=== PATIENT | male | born 1955 | race Caucasian/White ===

== ENCOUNTER 2016-11-06 17:37 | Emergency (ER) | payer MEDICARE, MEDICAID ==
[~2016-11-06] VITALS: Ht 185.4 cm; Wt 147.4 kg
[~2016-11-06 17:37] MED LIST: 'XANAX0.5 MG PO; AMOXICILLIN500 MG PO; ANAPROX DS550 MG PO; ASPIRIN LOW DOS81 M1 PO; ASPIRIN81 M2; AUGMENTIN 875-875 MG PO; AZELASTINE HYDRO6 M1 OP; BACTRIM DS 8001 TA1 PO; CIPROFLOXACIN500 MG PO; CITRACAL + D E1 EACH PO; CLARITIN10 MG PO; CLINDAMYCIN HC300 MG PO; FLAGYL500 MG PO; INDERAL LA120 M1 PO; INDERAL LA60 MG PO; LASIX20 MG; LASIX40 MG PO; LISINOPRIL/HCTZ1 TA2 PO; LISINOPRIL20 MG PO; LOMOTIL 0.025 M1 TA1 PO; MIRAPEX0.5 MG PO; MOTRIN800 MG PO; NAPROSYN500 MG PO; OMEPRAZOLE MAGN20 MG; PARAFON FORTE500 MG PO; PHENERGAN W/DM120 ML PO; POTASSIUM CHLO20 ME3 PO; PRAVACHOL80 MG PO; PREDNICOT10 MG PO; PROAIR HFA0.09 MG/AC INH; PROZAC40 MG PO; SERTRALINE HYDR50 MG PO; TRAMADOL HCL50 MG PO; ULTRAM50 MG PO; VIBRAMYCIN100 MG PO; VICODIN 5/500 505 MG PO; VICODIN 500 MG-1 TAB PO; VICODIN ES 7501 TA1; VICODIN ES 7501 TAB; XANAX0.5 MG; ZITHROMAX Z PA250 MG PO; ZOFRAN ODT4 MG SL; ZOFRAN4 MG PO; [UNRECOGNIZED DRUG - OTHER] NS
[2016-11-06 18:05] VITALS: BP 154/65
[2016-11-06 19:21] LABS: BASO # 0.1 10*3/uL (0.0-0.1); BASO % 0.9 % (0.0-1.0); EOS # 0.2 10*3/uL (0.0-0.4); EOS % 3.6 % (1.0-4.0); HEMATOCRIT 40.8 % (42.0-52.0); HEMOGLOBIN 13.2 g/dl (14.0-18.0); LYMPH # 1.4 10*3/uL (1.3-4.4); LYMPH % 24.9 % (27.0-41.0); MEAN CELL VOLUME 93.2 fl (80.0-94.0); MEAN CORPUSCULAR HGB 30.1 pg (27.0-31.0); MEAN CORPUSCULAR HGB CONC 32.4 g/dl (33.0-37.0); MEAN PLATELET VOLUME 10.2 fl (9.6-12.3); MONO # 0.3 10*3/uL (0.1-1.0); MONO % 5.4 % (3.0-9.0); NEUT # 3.8 10*3/uL (2.3-7.9); NEUT % 64.9 % (47.0-73.0); PLATELET COUNT AUTOMATED 139 10*3/uL (130-400); RED BLOOD COUNT 4.38 10*6/uL (4.50-5.90); RED CELL DISTRI WIDTH 13.6 % (0-14.5); WHITE BLOOD COUNT 5.8 10*3/uL (4.8-10.8)
[2016-11-06 19:25] LABS: BILIRUBIN NEGATIVE (NEGATIVE); BLOOD NEGATIVE (NEGATIVE); CLARITY CLEAR (CLEAR); COLOR YELLOW (YELLOW); GLUCOSE NEGATIVE (NEGATIVE); KETONE TRACE (NEGATIVE); LEUKO ESTERASE NEGATIVE (NEGATIVE); NITRITE NEGATIVE (NEGATIVE); PH 5.5 (5.0-9.0); PROTEIN NEGATIVE (NEGATIVE); SPECIFIC GRAVITY >= 1.030 (1.005-1.030)
[2016-11-06 19:34] LABS: WBC 0-2 wbc/hpf (0-5)
[2016-11-06 19:35] LABS: BACTERIA TRACE; URINE REFLEX COMMENT NO (NO)
[2016-11-06 19:40] LABS: ALBUMIN 3.8 gm/dl (3.1-4.5); ALKALINE PHOSPHATASE 49 U/L (45-117); BILIRUBIN, TOTAL 0.4 mg/dl (0.2-1.0); BUN 22 mg/dl (7-24); CARBON DIOXIDE 28 mmol/L (21-32); CHLORIDE 111 mmol/L (98-107); EST GLOM FILT AFRICAN AMERICAN > 60 ml/min; GLUCOSE 94 mg/dL (65-99); POTASSIUM 4.3 mmol/L (3.5-5.1); SGOT/AST 17 IU/L (3-35); SGPT/ALT 21 U/L (12-78); SODIUM 146 mmol/L (136-145); TOTAL PROTEIN 6.7 gm/dL (6.4-8.2)
[2016-11-06] MEDS ORDERED: HYDROCODONE BIT1 T11 PO (20:13)
== END 2016-11-06 18:21 | disposition home or self-care (01) ==
LOC: ED 17:37
PROVIDERS: Registered Nurse
DX: R10.31 Right lower quadrant pain (principal); F17.200 Nicotine dependence, unspecified, uncomplicated; Z87.442 Personal history of urinary calculi

== ENCOUNTER 2017-09-25 18:10 | Inpatient (IN) | payer MEDICARE, MEDICAID ==
[~2017-09-25] VITALS: Ht 185.4 cm; Wt 158.0 kg
--- NOTE | ~2017-09-25 | ST ---
[place], [place] EXERCISE STRESS TEST REPORT NAME: JOO BLACKWELL [facility] #: [id number] UNIT #: [id number] ROOM: 416 DOCTOR: ZEE SCOTT MD BIRTHDATE: [birth year] DOS: 09/26/2017 CARDIAC STRESS TEST The patient is a 61-year-old gentleman with complaints of chest pains, with negative cardiac enzymes, troponin I levels, admitted to the hospital for rule out AR. The patient has been asymptomatic since admission. The patient was tested with Lexiscan cardiac stress test. Baseline EKG showed sinus rhythm at the heart rate of 64 beats per minute, normal cardiac axis. There were Q-waves in inferior leads. No significant ST-T abnormality. During the Lexiscan injection and stress and recovery phase, the patient did not develop any significant EKG abnormality compatible with myocardial ischemia. No complaints of any angina-like symptoms. Heart rate ranged between 64 to 96 beats per minute and the blood pressure ranged between 132 systolic over 69 diastolic, 240 systolic over 66 diastolic. Cardiolite was injected 40 seconds after Lexiscan injection of 0.4 mg IV. Normal EKG part of the Lexiscan Cardiolite stress test. No EKG abnormality. No angina symptoms. Cardiolite results to be reported by Dr. Kleber Leahy later today. ZEE SCOTT MD CM:STRESS:EXERCISE STRESS TEST REPORT [id number] ZEE SCOTT MD
--- NOTE | ~2017-09-25 | WRIGHTHP ---
[place], [place] PATIENT HISTORY AND PHYSICAL EXAM NAME: JOO BLACKWELL [facility] #: [id number] UNIT #: [id number] ROOM: 416 DOCTOR: ZEE SCOTT MD BIRTHDATE: [birth year] DOS: 09/26/2017 The patient is a 61-year-old gentleman with a past medical history of: 1. Morbid obesity. 2. Vitamin D deficiency. 3. Major depression, recurrent, mild. 4. History of pollen allergies. 5. Benign essential hypertension. 6. History of generalized anxiety disorder. 7. History of centrilobular emphysema. The patient presented to the Emergency Department with complaints of chest tightness and some shortness of breath, and the patient appeared to be high risk for coronary artery disease considering his morbid obesity, hypertension history. He was admitted to a monitored bed. After admission, the patient remained free of chest pains and he was taken for a cardiac stress test this morning, which only showed some possible apical reversible ischemia which was small area and also possible artifact. Case was discussed with Dr. Kleber Leahy, the hourly sales staff, who has recommended that the patient can be discharged to home after being started on Imdur and a heart catheterization is not recommended at this time. After adjusting his medications and a consult with cardiology and after clearance from them, the patient is being discharged to home to follow up with the office within few days. The patient is asymptomatic before discharge. REVIEW OF SYSTEMS: LUNGS: No increasing shortness of breath or wheezing. GASTROINTESTINAL: No nausea, vomiting, diarrhea, constipation. CARDIOVASCULAR: Complains of chest pain prior to admission. FAMILY HISTORY: Noncontributory. HOME MEDICATIONS: Lisinopril, hydrochlorothiazide, Xanax, albuterol, propranolol, Zoloft, hydrocodone, cetirizine, cholecalciferol, Breo Ellipta inhaler. ALLERGIES: No known drug allergies. PHYSICAL EXAMINATION: GENERAL: Alert and oriented x3. No visible distress. Morbidly obese. VITAL SIGNS: Blood pressure 137/52, heart rate 76 beats per minute, breathing 20 times per minute, temperature 98 degrees Fahrenheit. HEENT AND NECK: Extraocular movements are intact. Sclerae are anicteric. Oral mucosa is moist and clean. No obvious facial weakness. Neck is supple without any lymphadenopathy. No thyromegaly. No JVD. No carotid arterial bruits. LUNGS: Clear to auscultation. No wheezing. No rhonchi. CARDIOVASCULAR SYSTEM: Heart rate is regular in rate and rhythm. S1 and S2 normally audible. No significant murmur or any other abnormal cardiac sounds. ABDOMEN: Soft, nontender. No obvious organomegaly. Bowel sounds are present. No obvious herniation. [place], [place] PATIENT HISTORY AND PHYSICAL EXAM [id number] UN[facility] #: [id number] ROOM: [facility] DOCTOR: ZEE SCOTT MD BIRTHDATE: [birth year] EXTREMITIES: Without significant cyanosis or edema. Warm to touch. CENTRAL NERVOUS SYSTEM: Alert and oriented x 3. Cranial nerves II-XII are intact. Speech is normal. The patient is able to move all extremities. Normal muscle strength. Deep tendon reflexes are equal on both sides. Plantars were downgoing. LABORATORY DATA: Three sets of cardiac enzymes and troponin I levels were all negative. Cardiac stress test was also as mentioned above. CT of the head without any acute abnormality. CT of the neck without any acute abnormality. Chest x-ray without any abnormality. Normal serum electrolytes. IMPRESSION: 1. The patient presenting with chest pains and some shortness of breath and very high risk for a coronary artery disease. The patient admitted and ruled out for acute myocardial infarction ____ troponin I levels which was normal. The patient was taken for a cardiac stress test this morning which showed some possible apical reversible ischemia versus an artifact. Dr. Kleber Leahy, the hourly sales staff, evaluated the patient and also read the stress test images and has recommended some medication changes in addition of Imdur to patient's medications and that the patient can be safely discharged to home after clearance from hourly sales staff and follow up with them as an outpatient. 2. Morbid obesity. The patient works with dietary. 3. Generalized anxiety disorder, treated with Zoloft and p.r.n. Xanax. 4. Centrilobular emphysema, treated with bronchodilators. 5. Chronic lower back pain and lumbar spondylosis, treated with hydrocodone. 6. Vitamin D deficiency, treated with supplements. 7. Benign essential hypertension, treated and controlled. The patient treated with lisinopril and propranolol. 8. The patient will follow up with me at the office next week which is in the few days. ZEE SCOTT MD CM:HISPHYS:PATIENT HISTORY AND PHYSICAL EXAMINATION [id number] ZEE SCOTT MD 09/26/17 222 interface
--- NOTE | ~2017-09-25 | CON ---
[place], [place] RE[facility]ATION [id number] #: [id number] ROOM: 416 DOCTOR: MILES CADETKATIEDORIS BIRTHDATE: [birth year] DOS: 09/26/2017 REQUESTING PHYSICIAN: Dr. Irvin Sweet. REASON FOR CONSULTATION: Chest pain. ASSESSMENT: 1. Current presentation for 3 weeks. History of chest pain. 2. Hypertension. 3. Obesity. 4. Probable obstructive sleep apnea. 5. Active tobacco abuse. 6. Probable early family history of heart disease. 7. Abnormal stress test with a small area on inferior apical ischemia, but normal LV function and no wall motion abnormality. PLAN: 1. Enteric-coated aspirin 81 mg. 2. Imdur 30 mg once a day. 3. Nitroglycerin sublingual p.r.n. chest pain. 4. Early followup in one week. 5. Cardiac catheterization for continued complain of chest pain while on Imdur. 6. Consider sleep study. 7. Smoking cessation. 8. Exercise, weight loss. 9. The patient was strongly advised to call back for any worsening symptoms. HISTORY AND PHYSICAL: The patient is a pleasant 61-year-old gentleman unknown to our practice, was referred by Dr. Irvin Sweet for evaluation of chest pain. Apparently, the patient ruled out for myocardial infarction. A subsequent stress test which was read by myself showing possible ischemia in the inferoapical segment of the left ventricle, which was relatively small with no wall motion abnormalities. The patient apparently has been having this pain for the past 3 weeks, usually ____ when he gets up in the morning and starts moving. It does get worse with any emotional stress. The pain can reach 6/10. It lasts only a few minutes though. There is, on occasion, some nausea and some cold sweats. It does radiate to her right shoulder and sometimes to the left shoulder. The pain is dull, aching. No heaviness, no tightness. The patient has limited functional capacity due to bilateral knee pains. He sleeps on one pillow with no reported PND, orthopnea or pedal edema. Occasional pounding heartbeat, but never had any racing heartbeats or any associated dizziness, lightheadedness, or near syncope. The patient does report loud snoring. No fever, no chills, no night sweats. Maintain good appetite, no weight loss. PAST MEDICAL HISTORY: As detailed in my assessment. SOCIAL HISTORY: The patient continued to smoke, has been doing this for the past 30 years, currently about half pack a day. No heavy alcohol or illicit drug abuse. [place], [place] REPORT OF CONSULTATION NAME: JOO BLACKWELL UNIT #: [id number] ROOM: 416 DOCTOR: MATEO AQUINO MD BIRTHDATE: [birth year] FAMILY HISTORY: The patient's mother at age 69 of congestive heart failure. His father at age 86 of myocardial infarction. He has one brother and one sister, both from alcohol abuse. CURRENT MEDICATIONS: Aspirin\E\n, Xanax, Inderal. ALLERGIES: The patient has no known drug allergies. REVIEW OF SYSTEMS: Currently, the patient denies any headache, diplopia or blurry vision. No fever, no chills, no night sweats, no abdominal pain, no bright red blood per rectum or tarry stools. The patient admits to joint pain, but no muscular pain. No anxiety, no depression, no polyuria, no polydipsia, no skin rash. Review of all other systems has been negative. PHYSICAL EXAMINATION: GENERAL: The patient alert and oriented x 3, quite pleasant, sitting up in bed having his dinner, in no apparent distress. Denies any ongoing complaint. VITAL SIGNS: Blood pressure 137/52, heart rate 76, respiratory rate of 16, temperature 98. Heart rate reported during the day at 55. HEENT: Extraocular muscle intact. Pupils equal, round, reactive to light. Conjunctivae: No pallor. Throat: No petechiae. NECK: Good carotid upstroke. Unable to appreciate any bruit, no lymphadenopathy, no thyromegaly. HEART: S1, S2 with faint holosystolic murmur at left upper sternal border. No rub or sternal heave. CHEST AND BACK: No deformities. LUNGS: Clear to auscultation. Slight decrease in air movement. No wheezing, no rales. ABDOMEN: Obese, soft, nontender, present bowel sounds, no masses, no bruits. EXTREMITIES: Mild ankle edema with faint distal pulses. NEUROLOGIC: Grossly nonfocal. SKIN: No significant rash. LABORATORY DATA: Troponin less than 0.015. CK-MB is 10.4, white count 7.2, hemoglobin 12.7, platelet 141,000. INR 1.0. Chloride 109, glucose 103. ProB 526 and total protein 6.3. Normal lipase. Chest x-ray showed no acute process. MATEO AQUINO MD CM:CONSTR:REPORT OF CONSULTATION 10 09/26/17 197 interface
[2017-09-25 18:10] VITALS: BP 161/82
[~2017-09-25 18:10] MED LIST changes: +HYDROCODONE BIT1 T11 PO
[2017-09-25 18:43] LABS: BASO % 0.6 % (0.0-1.0); EOS # 0.3 10*3/uL (0.0-0.4); EOS % 4.7 % (1.0-4.0); HEMATOCRIT 39.8 % (42.0-52.0); HEMOGLOBIN 12.7 g/dl (14.0-18.0); LYMPH # 1.9 10*3/uL (1.3-4.4); LYMPH % 26.7 % (27.0-41.0); MEAN CELL VOLUME 91.3 fl (80.0-94.0); MEAN CORPUSCULAR HGB 29.1 pg (27.0-31.0); MEAN CORPUSCULAR HGB CONC 31.9 g/dl (33.0-37.0); MEAN PLATELET VOLUME 10.3 fl (9.6-12.3); MONO # 0.3 10*3/uL (0.1-1.0); MONO % 4.7 % (3.0-9.0); NEUT # 4.5 10*3/uL (2.3-7.9); NEUT % 62.7 % (47.0-73.0); PLATELET COUNT AUTOMATED 141 10*3/uL (130-400); RED BLOOD COUNT 4.36 10*6/uL (4.50-5.90); RED CELL DISTRI WIDTH 14.6 % (0-14.5); WHITE BLOOD COUNT 7.2 10*3/uL (4.8-10.8)
[2017-09-25 18:56] VITALS: BP 111/55
[2017-09-25 19:03] LABS: ALBUMIN 3.4 gm/dl (3.1-4.5); ALKALINE PHOSPHATASE 63 U/L (45-117); BUN 19 mg/dl (7-24); CHLORIDE 109 mmol/L (98-107); CREATININE 0.98 mg/dL (0.70-1.30); LIPASE 116 U/L (73-393); SGOT/AST 17 IU/L (3-35); SGPT/ALT 23 U/L (12-78); SODIUM 141 mmol/L (136-145); TOTAL PROTEIN 6.3 gm/dL (6.4-8.2)
[2017-09-25 19:04] LABS: ACT PARTIAL THROMBO TIME 24.6 SECONDS (20.8-31.5)
--- NOTE | 2017-09-25 19:04 | NUR ---
NURSE TO NURSE REPORT GIVEN TO THIS RN.INFUSION OF VANCOMYCIN CONTINUES.PT AWAITING BED ASSIGNMENT FOR TRANSFER TO FLOOR.
--- NOTE | 2017-09-25 19:06 | NUR ---
PT IN CT AT THIS TIME. WILL CONTINUE TO MONITOR.
[2017-09-25 19:07] LABS: TROPONIN I < 0.015 ng/ml (<0.045)
--- NOTE | 2017-09-25 19:20 | NUR ---
PT IN ROOM FROM CT. PT LYING IN BED CALM AND COMFORTABLE. VSS. HR 70 PER CM WITH NSR. WILL CONTINUE TO MONITOR.
[2017-09-25 19:30] VITALS: BP 111/55
[2017-09-25 20:30] VITALS: BP 103/35
[2017-09-25 21:00] VITALS: BP 108/58
--- NOTE | 2017-09-25 21:50 | NUR ---
A 61, admitted to 4E, under the services of Dr. SONIA CADET,ZEE Che with a diagnosis of CHEST PAIN. Chief complaint is INTERMITTENT CHEST PAIN X 2 WEEKS. Patient arrived via ambulatory from ER. Monitor applied. Initial assessment completed. Vital signs taken and recorded. DR. SONIA CADET,ZEE Che notified of admission to the unit. Orders received. See assessment for past medical history, medications and allergies. Patient and/or family oriented to unit. Clothing/patient valuable form completed. DREW COTE
[2017-09-25 22:00] VITALS: BP 130/67
--- NOTE | 2017-09-25 22:16 | NUR ---
SPOKE WITH DR. SCOTT AT THIS TIME. ORDERS RECEIVED AT THIS TIME.
[2017-09-26] VITALS: BP 126/57
[2017-09-26 06:20] LABS: CKMB 10.4 ng/ml (0.5-3.6); TROPONIN I < 0.015 ng/ml (<0.045)
--- NOTE | 2017-09-26 06:24 | NUR ---
NOTIFIED DR. SCOTT OF PTS. CRITICAL CK-MB OF 10.4 AT THIS TIME. NO NEW ORDERS AT THIS TIME.
--- NOTE | 2017-09-26 07:30 | NUR ---
ASSUMED CARE OF PT AT THIS TIME, RESPS EASY AND NONLABORED WITH NO S/S OF DISTRESS CALL LIGHT WITH IN REACH
[2017-09-26 08:00] VITALS: BP 142/70
--- NOTE | 2017-09-26 08:30 | NUR ---
[employer] VS. OFF FLOOR FOR TESTING.
--- NOTE | 2017-09-26 08:50 | NUR ---
INFORMED CONSENT SIGNED FOR LEXISCAN STRESS TEST WITH DR SCOTT. RESTING EKG SB WITH A HR OF 64 AND BP 132/64. POX 98% VIA RA WITH CLEAR BREATH SOUNDS. COMPLETED ONE MINUTE OF LEXSICAN PROTOCOL RECEIVING LEXISCAN 0.4 MG OVER 10 SECONDS. PT DEVELOPED A COUGH AND SOB THAT WAS RELIEVED IN RECOVERY. HAD A PEAK HR OF 96, WITH A BP OF 140/66. LAST RECOVERY HR OF 80, WITH A BP OF 140/66. AWAITING NUCLEAR IMAGING IN STABLE CONDITION.
[2017-09-26] MEDS ORDERED: ZYRTEC10 MG PO (11:16)
[2017-09-26] MEDS ORDERED: NORCO 7.5-3251 EACH PO (11:16)
[2017-09-26] MEDS ORDERED: BREO ELLIPTA 21 EACH INH (11:17)
[2017-09-26] MEDS ORDERED: VITAMIN D5000 UNIT PO (11:17)
--- NOTE | 2017-09-26 11:19 | NUR ---
MEDICATIONS REVIEWED WITH [facility]
[2017-09-26 12:00] VITALS: BP 126/60
[2017-09-26 16:00] VITALS: BP 137/52
--- NOTE | 2017-09-26 18:11 | NUR ---
Discharge instructions reviewed with patient/family. Patient receptive and verbalizes understanding. Follow-up care arranged. Written instructions given to patient/family. HUGO PHELAN
== END 2017-09-26 18:11 | disposition home or self-care (01) | DRG 303 ==
LOC: ED 18:10 → EDHOLD 20:46 → 4E 20:46
PROVIDERS: Emergency Medicine; ADMIT Internal Medicine
PROC: 3E073KZ Introduction of Other Diagnostic Substance into Coronary Artery, Percutaneous Approach (ICD-10-PCS; principal; 2017-09-26)
PROC: 4A02XM4 Measurement of Cardiac Total Activity, External Approach (ICD-10-PCS; principal; 2017-09-26)
DX: I25.9 Chronic ischemic heart disease, unspecified (principal); E66.01 Morbid (severe) obesity due to excess calories; Z68.42 Body mass index [BMI] 45.0-49.9, adult; J43.2 Centrilobular emphysema; F32.9 Major depressive disorder, single episode, unspecified; F41.1 Generalized anxiety disorder; F17.210 Nicotine dependence, cigarettes, uncomplicated; I10 Essential (primary) hypertension; Z91.048 Other nonmedicinal substance allergy status; M47.816 Spondylosis without myelopathy or radiculopathy, lumbar region; Z71.6 Tobacco abuse counseling; Z82.49 Family history of ischemic heart disease and other diseases of the circulatory system; Z81.1 Family history of alcohol abuse and dependence

== ENCOUNTER → 2018-07-03 | Outpatient (CLI) | payer MEDICARE, MEDICAID ==
[~2018-07-03] MED LIST changes: +BREO ELLIPTA 21 EACH INH; +NORCO 7.5-3251 EACH PO; +VITAMIN D5000 UNIT PO; +ZYRTEC10 MG PO
== END | disposition home or self-care (01) ==
LOC: RAD 16:16
DX: M16.0 Bilateral primary osteoarthritis of hip (principal); M17.0 Bilateral primary osteoarthritis of knee; M19.012 Primary osteoarthritis, left shoulder; M19.011 Primary osteoarthritis, right shoulder

== ENCOUNTER 2019-07-16 19:32 | Emergency (ER) | payer OTHER, MEDICAID ==
[~2019-07-16] VITALS: Ht 185.4 cm; Wt 145.1 kg
[2019-07-16 19:53] LABS: BASO # 0.1 10*3/uL (0.0-0.1); BASO % 0.9 % (0.0-1.0); EOS # 0.2 10*3/uL (0.0-0.4); EOS % 3.4 % (1.0-4.0); HEMATOCRIT 43.6 % (42.0-52.0); HEMOGLOBIN 13.4 g/dl (14.0-18.0); LYMPH # 1.4 10*3/uL (1.3-4.4); LYMPH % 25.2 % (27.0-41.0); MEAN CELL VOLUME 89.9 fl (80.0-94.0); MEAN CORPUSCULAR HGB 27.6 pg (27.0-31.0); MEAN CORPUSCULAR HGB CONC 30.7 g/dl (33.0-37.0); MEAN PLATELET VOLUME 9.5 fl (9.6-12.3); MONO # 0.3 10*3/uL (0.1-1.0); MONO % 5.8 % (3.0-9.0); NEUT # 3.7 10*3/uL (2.3-7.9); NEUT % 64.3 % (47.0-73.0); PLATELET COUNT AUTOMATED 165 10*3/uL (130-400); RED BLOOD COUNT 4.85 10*6/uL (4.50-5.90); RED CELL DISTRI WIDTH 14.6 % (0-14.5); WHITE BLOOD COUNT 5.7 10*3/uL (4.8-10.8)
[2019-07-16 20:04] LABS: ACT PARTIAL THROMBO TIME 25.4 SECONDS (20.0-32.1)
[2019-07-16 20:10] LABS: ALBUMIN 3.5 gm/dl (3.1-4.5); ALKALINE PHOSPHATASE 77 U/L (45-117); BUN 16 mg/dl (7-24); CHLORIDE 110 mmol/L (98-107); CREATININE 1.26 mg/dL (0.70-1.30); POTASSIUM 3.7 mmol/L (3.5-5.1); SGOT/AST 12 IU/L (3-35); SGPT/ALT 23 U/L (12-78); SODIUM 143 mmol/L (136-145); TOTAL PROTEIN 6.8 gm/dL (6.4-8.2)
[2019-07-16 20:22] LABS: TROPONIN I < 0.015 ng/ml (<0.045)
[2019-07-16 22:49] LABS: BILIRUBIN NEGATIVE (NEGATIVE); BLOOD NEGATIVE (NEGATIVE); CLARITY CLEAR (CLEAR); COLOR YELLOW (YELLOW); GLUCOSE NEGATIVE (NEGATIVE); KETONE NEGATIVE (NEGATIVE); LEUKO ESTERASE TRACE (NEGATIVE); NITRITE NEGATIVE (NEGATIVE); SPECIFIC GRAVITY >= 1.030 (1.005-1.030); UROBILINOGEN 0.2 E.U./dl (0.2-1.0)
[2019-07-16 22:56] LABS: BACTERIA 1+; EPITHELIAL CELLS 0-2; MUCOUS TRACE; RBC 0-2 rbc/hpf (0-2)
[2019-07-17 00:37] VITALS: BP 165/75
== END 2019-07-17 00:45 | disposition left against medical advice (07) ==
LOC: ED 19:32
PROVIDERS: Emergency Medicine; Nurse Practitioner
DX: R07.9 Chest pain, unspecified (principal); R10.30 Lower abdominal pain, unspecified; I10 Essential (primary) hypertension; K21.9 Gastro-esophageal reflux disease without esophagitis; J44.9 Chronic obstructive pulmonary disease, unspecified; F17.200 Nicotine dependence, unspecified, uncomplicated; Z79.899 Other long term (current) drug therapy

== ENCOUNTER 2019-08-18 15:24 | Emergency (ER) | payer OTHER, MEDICAID ==
[~2019-08-18] VITALS: Ht 185.4 cm; Wt 163.3 kg
[2019-08-18 15:26] VITALS: BP 164/80
[2019-08-18 16:54] LABS: BASO # 0.1 10*3/uL (0.0-0.1); EOS # 0.1 10*3/uL (0.0-0.4); EOS % 1.8 % (1.0-4.0); HEMATOCRIT 45.5 % (42.0-52.0); HEMOGLOBIN 14.1 g/dl (14.0-18.0); LYMPH # 1.1 10*3/uL (1.3-4.4); LYMPH % 21.5 % (27.0-41.0); MEAN CELL VOLUME 88.7 fl (80.0-94.0); MEAN CORPUSCULAR HGB 27.5 pg (27.0-31.0); MEAN PLATELET VOLUME 10.1 fl (9.6-12.3); MONO # 0.2 10*3/uL (0.1-1.0); MONO % 4.3 % (3.0-9.0); NEUT # 3.6 10*3/uL (2.3-7.9); NEUT % 71.2 % (47.0-73.0); PLATELET COUNT AUTOMATED 153 10*3/uL (130-400); RED BLOOD COUNT 5.13 10*6/uL (4.50-5.90); RED CELL DISTRI WIDTH 14.3 % (0-14.5); WHITE BLOOD COUNT 5.1 10*3/uL (4.8-10.8)
[2019-08-18 17:09] LABS: ALBUMIN 3.7 gm/dl (3.1-4.5); ALKALINE PHOSPHATASE 79 U/L (45-117); BUN 10 mg/dl (7-24); CHLORIDE 109 mmol/L (98-107); CREATININE 1.02 mg/dL (0.70-1.30); LIPASE 64 U/L (73-393); SGOT/AST 15 IU/L (3-35); SGPT/ALT 25 U/L (12-78); SODIUM 139 mmol/L (136-145); TOTAL PROTEIN 7.3 gm/dL (6.4-8.2)
== END 2019-08-18 18:25 | disposition home or self-care (01) ==
LOC: ED 15:24
PROVIDERS: Emergency Medicine
DX: K59.00 Constipation, unspecified (principal); I10 Essential (primary) hypertension; K21.9 Gastro-esophageal reflux disease without esophagitis; J44.9 Chronic obstructive pulmonary disease, unspecified; F17.200 Nicotine dependence, unspecified, uncomplicated; Z79.899 Other long term (current) drug therapy

== ENCOUNTER → 2019-11-12 | Outpatient (CLI) | payer OTHER, MEDICAID ==
[2019-11-12 14:06] LABS: BASO % 0.5 % (0.0-1.0); EOS # 0.2 10*3/uL (0.0-0.4); EOS % 3.5 % (1.0-4.0); HEMATOCRIT 43.3 % (42.0-52.0); HEMOGLOBIN 13.1 g/dl (14.0-18.0); LYMPH # 1.2 10*3/uL (1.3-4.4); LYMPH % 20.7 % (27.0-41.0); MEAN CELL VOLUME 89.5 fl (80.0-94.0); MEAN CORPUSCULAR HGB 27.1 pg (27.0-31.0); MEAN CORPUSCULAR HGB CONC 30.3 g/dl (33.0-37.0); MEAN PLATELET VOLUME 9.6 fl (9.6-12.3); MONO # 0.3 10*3/uL (0.1-1.0); MONO % 5.4 % (3.0-9.0); NEUT % 69.4 % (47.0-73.0); PLATELET COUNT AUTOMATED 190 10*3/uL (130-400); RED BLOOD COUNT 4.84 10*6/uL (4.50-5.90); RED CELL DISTRI WIDTH 15.8 % (0-14.5); WHITE BLOOD COUNT 5.8 10*3/uL (4.8-10.8)
[2019-11-12 14:23] LABS: ALBUMIN 3.4 gm/dl (3.1-4.5); ALKALINE PHOSPHATASE 76 U/L (45-117); BUN 14 mg/dl (7-24); CHLORIDE 112 mmol/L (98-107); CHOLESTEROL 172 mg/dL (<200); CREATININE 1.04 mg/dL (0.70-1.30); FREE T4 0.91 ng/dl (0.76-1.46); HDL CHOLESTEROL 48 mg/dl (40-60); LDL CHOLESTEROL 100 mg/dL (9-159); POTASSIUM 4.5 mmol/L (3.5-5.1); SGOT/AST 11 IU/L (3-35); SGPT/ALT 20 U/L (12-78); SODIUM 142 mmol/L (136-145); TOTAL PROTEIN 7.5 gm/dL (6.4-8.2); TRIGLYCERIDES 120 mg/dl (<150); VLDL CHOLESTEROL 24 mg/dL (6-40)
[2019-11-12 14:53] LABS: VITAMIN D, 25-HYDROXY 20.8 ng/mL (30-100)
== END | disposition home or self-care (01) ==
LOC: LAB 13:49
PROVIDERS: Internal Medicine
DX: Z12.5 Encounter for screening for malignant neoplasm of prostate (principal); I10 Essential (primary) hypertension; E78.2 Mixed hyperlipidemia; E55.9 Vitamin D deficiency, unspecified

== ENCOUNTER → 2019-11-13 | Outpatient (CLI) | payer OTHER, MEDICAID | END | disposition home or self-care (01) | LOC: US 13:50 | DX: I70.203 Unspecified atherosclerosis of native arteries of extremities, bilateral legs (principal); R60.0 Localized edema ==

== ENCOUNTER → 2020-03-01 | Outpatient (CLI) | payer OTHER, MEDICAID ==
[2020-03-01 15:34] LABS: BASO # 0.1 10*3/uL (0.0-0.1); BASO % 0.8 % (0.0-1.0); EOS # 0.3 10*3/uL (0.0-0.4); EOS % 4.2 % (1.0-4.0); HEMATOCRIT 39.3 % (42.0-52.0); LYMPH # 1.2 10*3/uL (1.3-4.4); LYMPH % 18.8 % (27.0-41.0); MEAN CELL VOLUME 90.6 fl (80.0-94.0); MEAN CORPUSCULAR HGB 28.3 pg (27.0-31.0); MEAN CORPUSCULAR HGB CONC 31.3 g/dl (33.0-37.0); MEAN PLATELET VOLUME 9.9 fl (9.6-12.3); MONO # 0.3 10*3/uL (0.1-1.0); MONO % 4.4 % (3.0-9.0); NEUT # 4.7 10*3/uL (2.3-7.9); NEUT % 70.7 % (47.0-73.0); PLATELET COUNT AUTOMATED 182 10*3/uL (130-400); RED BLOOD COUNT 4.34 10*6/uL (4.50-5.90); RED CELL DISTRI WIDTH 15.6 % (0-14.5); WHITE BLOOD COUNT 6.6 10*3/uL (4.8-10.8)
[2020-03-01 16:04] LABS: ALBUMIN 3.3 gm/dl (3.1-4.5); ALKALINE PHOSPHATASE 72 U/L (45-117); BUN 19 mg/dl (7-24); CHLORIDE 109 mmol/L (98-107); CHOLESTEROL 192 mg/dL (<200); CPK 207 U/L (39-308); FREE T4 1.13 ng/dl (0.76-1.46); HDL CHOLESTEROL 49 mg/dl (40-60); LDL CHOLESTEROL 87 mg/dL (9-159); POTASSIUM 3.9 mmol/L (3.5-5.1); SGOT/AST 19 IU/L (3-35); SGPT/ALT 30 U/L (12-78); SODIUM 143 mmol/L (136-145); TOTAL PROTEIN 7.1 gm/dL (6.4-8.2); TRIGLYCERIDES 282 mg/dl (<150); VLDL CHOLESTEROL 56 mg/dL (6-40)
[2020-03-01 16:10] LABS: VITAMIN D, 25-HYDROXY 17.6 ng/mL (30-100)
== END | disposition home or self-care (01) ==
LOC: LAB 14:40
PROVIDERS: Internal Medicine
DX: Z12.5 Encounter for screening for malignant neoplasm of prostate (principal); I10 Essential (primary) hypertension; E78.2 Mixed hyperlipidemia; E55.9 Vitamin D deficiency, unspecified; Z00.00 Encounter for general adult medical examination without abnormal findings

== ENCOUNTER 2020-05-02 15:21 | Emergency (ER) | payer OTHER, MEDICAID ==
[~2020-05-02] VITALS: Ht 185.4 cm; Wt 168.7 kg
[2020-05-02 15:29] VITALS: BP 138/53
[2020-05-02 16:34] LABS: BASO % 0.5 % (0.0-1.0); EOS # 0.3 10*3/uL (0.0-0.4); EOS % 4.8 % (1.0-4.0); HEMATOCRIT 38.2 % (42.0-52.0); LYMPH # 1.1 10*3/uL (1.3-4.4); LYMPH % 20.1 % (27.0-41.0); MEAN CORPUSCULAR HGB 26.6 pg (27.0-31.0); MEAN CORPUSCULAR HGB CONC 29.8 g/dl (33.0-37.0); MEAN PLATELET VOLUME 9.8 fl (9.6-12.3); MONO # 0.3 10*3/uL (0.1-1.0); MONO % 5.2 % (3.0-9.0); NEUT # 3.8 10*3/uL (2.3-7.9); NEUT % 68.5 % (47.0-73.0); PLATELET COUNT AUTOMATED 167 10*3/uL (130-400); RED BLOOD COUNT 4.29 10*6/uL (4.50-5.90); RED CELL DISTRI WIDTH 15.7 % (0-14.5); WHITE BLOOD COUNT 5.6 10*3/uL (4.8-10.8)
[2020-05-02 16:49] LABS: ALBUMIN 3.3 gm/dl (3.1-4.5); ALKALINE PHOSPHATASE 70 U/L (45-117); BUN 28 mg/dl (7-24); CHLORIDE 109 mmol/L (98-107); CREATININE 1.13 mg/dL (0.70-1.30); LIPASE 74 U/L (73-393); POTASSIUM 4.4 mmol/L (3.5-5.1); SGOT/AST 16 IU/L (3-35); SGPT/ALT 32 U/L (12-78); SODIUM 139 mmol/L (136-145); TOTAL PROTEIN 7.2 gm/dL (6.4-8.2)
== END 2020-05-02 22:15 | disposition short-term general hospital (02) ==
LOC: ED 15:21
PROVIDERS: Nurse Practitioner Family
DX: N44.00 Torsion of testis, unspecified (principal); F41.9 Anxiety disorder, unspecified; I10 Essential (primary) hypertension; K21.9 Gastro-esophageal reflux disease without esophagitis; F32.9 Major depressive disorder, single episode, unspecified; J44.9 Chronic obstructive pulmonary disease, unspecified; Z79.899 Other long term (current) drug therapy

== ENCOUNTER 2020-12-21 11:15 | Observation (INO) | payer OTHER, MEDICAID ==
[~2020-12-21] VITALS: Ht 185.4 cm; Wt 177.1 kg
[2020-12-21 11:21] VITALS: BP 147/67
[2020-12-21 13:26] LABS: BASO % 0.6 % (0.0-1.0); EOS # 0.2 10*3/uL (0.0-0.4); EOS % 3.3 % (1.0-4.0); HEMATOCRIT 39.8 % (42.0-52.0); LYMPH # 1.1 10*3/uL (1.3-4.4); LYMPH % 17.1 % (27.0-41.0); MEAN CELL VOLUME 89.4 fl (80.0-94.0); MEAN CORPUSCULAR HGB 27.2 pg (27.0-31.0); MEAN CORPUSCULAR HGB CONC 30.4 g/dl (33.0-37.0); MEAN PLATELET VOLUME 9.5 fl (9.6-12.3); MONO # 0.3 10*3/uL (0.1-1.0); MONO % 4.3 % (3.0-9.0); NEUT % 74.3 % (47.0-73.0); PLATELET COUNT AUTOMATED 199 10*3/uL (130-400); RED BLOOD COUNT 4.45 10*6/uL (4.50-5.90); RED CELL DISTRI WIDTH 16.3 % (0-14.5); WHITE BLOOD COUNT 6.7 10*3/uL (4.8-10.8)
[2020-12-21 13:42] LABS: ALBUMIN 3.4 gm/dl (3.1-4.5); ALKALINE PHOSPHATASE 79 U/L (45-117); BUN 34 mg/dl (7-24); CHLORIDE 108 mmol/L (98-107); CREATININE 1.36 mg/dL (0.70-1.30); SGOT/AST 15 IU/L (3-35); SGPT/ALT 24 U/L (12-78); SODIUM 140 mmol/L (136-145)
[2020-12-21 17:15] VITALS: BP 108/45
[2020-12-21] MEDS ORDERED: LISINOPRIL20 MG PO (18:06)
[2020-12-21] MEDS ORDERED: HYDROCHLOROTHIA25 M1 PO (18:07)
[2020-12-21 20:00] VITALS: BP 117/55
[2020-12-22] VITALS: BP 127/46
[2020-12-22 06:04] LABS: CREATININE 1.49 mg/dL (0.70-1.30); POTASSIUM 4.2 mmol/L (3.5-5.1)
[2020-12-22 06:31] LABS: BASO # 0.1 10*3/uL (0.0-0.1); BASO % 0.8 % (0.0-1.0); EOS # 0.2 10*3/uL (0.0-0.4); EOS % 2.7 % (1.0-4.0); HEMATOCRIT 39.6 % (42.0-52.0); LYMPH # 1.7 10*3/uL (1.3-4.4); LYMPH % 21.5 % (27.0-41.0); MEAN CELL VOLUME 91.9 fl (80.0-94.0); MEAN CORPUSCULAR HGB 27.1 pg (27.0-31.0); MEAN CORPUSCULAR HGB CONC 29.5 g/dl (33.0-37.0); MEAN PLATELET VOLUME 10.2 fl (9.6-12.3); MONO # 0.4 10*3/uL (0.1-1.0); MONO % 5.1 % (3.0-9.0); NEUT # 5.5 10*3/uL (2.3-7.9); NEUT % 69.3 % (47.0-73.0); PLATELET COUNT AUTOMATED 220 10*3/uL (130-400); RED BLOOD COUNT 4.31 10*6/uL (4.50-5.90); RED CELL DISTRI WIDTH 16.4 % (0-14.5); WHITE BLOOD COUNT 7.9 10*3/uL (4.8-10.8)
[2020-12-22 08:00] VITALS: BP 137/50
[2020-12-22 12:00] VITALS: BP 153/55
[2020-12-22 20:00] VITALS: BP 130/63
[2020-12-23] VITALS: BP 130/85
[2020-12-23 06:04] LABS: BASO % 0.5 % (0.0-1.0); EOS # 0.2 10*3/uL (0.0-0.4); EOS % 3.1 % (1.0-4.0); HEMATOCRIT 36.2 % (42.0-52.0); LYMPH # 1.7 10*3/uL (1.3-4.4); LYMPH % 22.5 % (27.0-41.0); MEAN CORPUSCULAR HGB 27.4 pg (27.0-31.0); MEAN CORPUSCULAR HGB CONC 30.1 g/dl (33.0-37.0); MEAN PLATELET VOLUME 10.2 fl (9.6-12.3); MONO # 0.4 10*3/uL (0.1-1.0); MONO % 4.7 % (3.0-9.0); NEUT % 68.4 % (47.0-73.0); PLATELET COUNT AUTOMATED 183 10*3/uL (130-400); RED BLOOD COUNT 3.98 10*6/uL (4.50-5.90); RED CELL DISTRI WIDTH 16.5 % (0-14.5); WHITE BLOOD COUNT 7.4 10*3/uL (4.8-10.8)
[2020-12-23 06:30] LABS: BUN 29 mg/dl (7-24); CHLORIDE 106 mmol/L (98-107); CREATININE 1.28 mg/dL (0.70-1.30); POTASSIUM 3.7 mmol/L (3.5-5.1); SODIUM 140 mmol/L (136-145)
[2020-12-23 08:00] VITALS: BP 134/56
[2020-12-23 12:00] VITALS: BP 122/38
[2020-12-23 16:00] VITALS: BP 127/74
[2020-12-23 20:00] VITALS: BP 141/74
[2020-12-24] VITALS: BP 141/54
[2020-12-24 06:19] LABS: BASO # 0.1 10*3/uL (0.0-0.1); EOS # 0.3 10*3/uL (0.0-0.4); EOS % 4.5 % (1.0-4.0); HEMATOCRIT 37.3 % (42.0-52.0); LYMPH % 16.7 % (27.0-41.0); MEAN CELL VOLUME 91.9 fl (80.0-94.0); MEAN CORPUSCULAR HGB 26.8 pg (27.0-31.0); MEAN CORPUSCULAR HGB CONC 29.2 g/dl (33.0-37.0); MEAN PLATELET VOLUME 10.2 fl (9.6-12.3); MONO # 0.3 10*3/uL (0.1-1.0); MONO % 5.5 % (3.0-9.0); NEUT # 4.4 10*3/uL (2.3-7.9); NEUT % 71.5 % (47.0-73.0); PLATELET COUNT AUTOMATED 196 10*3/uL (130-400); RED BLOOD COUNT 4.06 10*6/uL (4.50-5.90); RED CELL DISTRI WIDTH 16.6 % (0-14.5); WHITE BLOOD COUNT 6.2 10*3/uL (4.8-10.8)
[2020-12-24 06:42] LABS: BUN 30 mg/dl (7-24); CHLORIDE 104 mmol/L (98-107); CREATININE 1.41 mg/dL (0.70-1.30); POTASSIUM 4.1 mmol/L (3.5-5.1); SODIUM 139 mmol/L (136-145)
[2020-12-24] MEDS ORDERED: AUGMENTIN 875875 MG PO (07:42)
[2020-12-24 08:00] VITALS: BP 141/119
[2020-12-24 12:00] VITALS: BP 114/56
[2020-12-24 16:00] VITALS: BP 128/47
[2020-12-24 20:00] VITALS: BP 97/55
[2020-12-25] VITALS: BP 130/57
[2020-12-25 08:00] VITALS: BP 132/68
[2020-12-25 12:00] VITALS: BP 129/66
== END 2020-12-25 12:57 | disposition home or self-care (01) ==
LOC: ED 11:15 → EDHOLD 16:31 → 4E 16:41
PROVIDERS: Physician Assistant; ADMIT Internal Medicine; ATTEND Internal Medicine
DX: L03.211 Cellulitis of face (principal); R22.9 Localized swelling, mass and lump, unspecified; E66.01 Morbid (severe) obesity due to excess calories; G89.29 Other chronic pain; M54.9 Dorsalgia, unspecified; Q82.0 Hereditary lymphedema; I87.2 Venous insufficiency (chronic) (peripheral); I12.9 Hypertensive chronic kidney disease with stage 1 through stage 4 chronic kidney disease, or unspecified chronic kidney disease; N18.31 Chronic kidney disease, stage 3a; J44.9 Chronic obstructive pulmonary disease, unspecified; I25.10 Atherosclerotic heart disease of native coronary artery without angina pectoris; J40 Bronchitis, not specified as acute or chronic; T67.5XXA Heat exhaustion, unspecified, initial encounter; Y92.89 Other specified places as the place of occurrence of the external cause; I82.402 Acute embolism and thrombosis of unspecified deep veins of left lower extremity; D63.1 Anemia in chronic kidney disease; I82.432 Acute embolism and thrombosis of left popliteal vein; I82.452 Acute embolism and thrombosis of left peroneal vein; Z98.890 Other specified postprocedural states; Z68.41 Body mass index [BMI] 40.0-44.9, adult